=== PATIENT | female | born 1965 | race Caucasian/White ===

== ENCOUNTER 2025-06-28 14:54 | Emergency (ER) | payer OTHER, BC ==
[~2025-06-28] VITALS: Ht 175.3 cm; Wt 94.3 kg
[2025-06-28] MEDS ORDERED: LIDODERM1 EACH TOP (17:10)
[2025-06-28] MEDS ORDERED: NAPROSYN500 MG PO (17:10)
[2025-06-28 17:44] VITALS: BP 128/75
== END 2025-06-28 17:46 | disposition home or self-care (01) ==
LOC: ED 14:54
DX: S82.61XA Displaced fracture of lateral malleolus of right fibula, initial encounter for closed fracture (principal); S20.222A Contusion of left back wall of thorax, initial encounter; Z88.5 Allergy status to narcotic agent; V80.010A Animal-rider injured by fall from or being thrown from horse in noncollision accident, initial encounter
CPT/HCPCS: 71101; 73610; 73630; 99284